=== PATIENT | female | born 1970 | race African-American/Black ===

== ENCOUNTER 2021-07-18 16:17 | Emergency (ER) | payer OTHER ==
[~2021-07-18] VITALS: Ht 167.6 cm; Wt 63.5 kg
[~2021-07-18 16:17] MED LIST: ACETAMINOPHEN-1 EAC1 PO; ACETAMINOPHEN500 M1 PO; BACTRIM DS TAB1 EACH PO; CELEBREX 200 M200 M1 PO; DIFLUCAN150 MG PO; DOXYCYCLINE 10100 M1 PO; FLAGYL500 MG PO; IBUPROFEN 600600 M1 PO; IBUPROFEN 800800 MG PO; LOMOTIL TABLET1 EACH PO; MECLIZINE HCL25 M1 PO; METROGEL-VAGINA70 GM VG; NAPROSYN500 MG PO; NOHOMEMEDICATIONS; NORCO 10-325 T1 EACH PO; NORCO 5-325 TA1 EACH PO; OSELB75 PO; REMERON15 MG PO; TRAMADOL 50 MG50 MG PO; VENTOLIN HFA 1818 GM INH; ZOFRAN ODT4 MG PO; ZOFRAN4 MG PO
[2021-07-18 16:20] VITALS: BP 133/82
[2021-07-18] MEDS ORDERED: NAPROSYN500 MG PO (16:55)
== END 2021-07-18 17:12 | disposition home or self-care (01) ==
LOC: ER 16:17
DX: S60.212A Contusion of left wrist, initial encounter (principal); S63.502A Unspecified sprain of left wrist, initial encounter; F17.210 Nicotine dependence, cigarettes, uncomplicated; Z98.890 Other specified postprocedural states; Z98.51 Tubal ligation status; Z79.899 Other long term (current) drug therapy; Z88.0 Allergy status to penicillin; Z88.1 Allergy status to other antibiotic agents; W22.8XXA Striking against or struck by other objects, initial encounter; Y93.89 Activity, other specified; Y92.89 Other specified places as the place of occurrence of the external cause; Y99.8 Other external cause status